=== PATIENT | male | born 1940 | race Asian ===

== ENCOUNTER 2018-05-15 08:24 | Day surgery (SDC) | payer OTHER ==
[2018-05-09 12:05] VITALS: BMI 16.1
[2018-05-15] MEDS ORDERED: PROPOFOL 20 ML ONE (08:35)
[2018-05-15 09:10] VITALS: TEMP 98.1
[2018-05-15] MEDS ORDERED: CEFAZOLIN 1 GM/D5W 1 GM/50 ML BAG ONE (09:33)
[2018-05-15] MEDS ORDERED: ceFAZolin SODIUM 1 GM VIAL IVPB ONE (09:40)
[2018-05-15 10:45] VITALS: BP 155/78; PULSE 64
[2018-05-15] MEDS ORDERED: CEFAZOLIN 1 GM/D5W 1 GM/50 ML BAG IVPB ONE (10:45)
== END 2018-05-15 11:15 ==
LOC: FASU-ENDO 08:24
PROVIDERS: ATTEND Internal Medicine Gastroenterology
PROC: 0DH63UZ Insertion of Feeding Device into Stomach, Percutaneous Approach (ICD-10-PCS; principal; 2018-05-15 09:48)
DX: R13.10 Dysphagia, unspecified (principal)